=== PATIENT | male | born 2000 | race Two or more races ===

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

== ENCOUNTER → 2019-04-10 | Outpatient (CLI) | payer OTHER ==
[~2019-04-10] MED LIST changes: +Remicade100 MG IV
[2019-04-14 03:09] LABS: CHLAMYDIA TRACHOMATIS, NAA Positive (Negative); NEISSERIA GONORRHOEAE, NAA Negative (Negative)
== END | disposition home or self-care (01) ==
LOC: LAB SHORT 16:17 → LAB 16:17
PROVIDERS: Nurse Practitioner Family
DX: Z11.3 Encounter for screening for infections with a predominantly sexual mode of transmission (principal)
CPT/HCPCS: 87491; 87591

== ENCOUNTER 2019-04-17 00:12 | Day surgery (SDC) | payer OTHER | END 2019-04-17 10:52 | disposition home or self-care (01) | LOC: ATC 00:12 | DX: K50.814 Crohn's disease of both small and large intestine with abscess (principal); F17.200 Nicotine dependence, unspecified, uncomplicated; Z79.899 Other long term (current) drug therapy; Z88.0 Allergy status to penicillin | CPT/HCPCS: 96413; 96415; J1745; J7050 ==

== ENCOUNTER 2019-06-23 02:20 | Day surgery (SDC) | payer OTHER | END 2019-06-23 16:48 | disposition home or self-care (01) | LOC: ATC 02:20 | DX: K50.814 Crohn's disease of both small and large intestine with abscess (principal); F17.200 Nicotine dependence, unspecified, uncomplicated; Z79.899 Other long term (current) drug therapy; Z88.0 Allergy status to penicillin | CPT/HCPCS: 96413; 96415; J1745; J2930; J7050 ==

== ENCOUNTER 2019-10-25 00:12 | Day surgery (SDC) | payer OTHER ==
--- NOTE | 2019-10-25 08:34 | NUR ---
IV INSERTION: BRAD PALENCIA RN ATTEMPTED 1 IV ATTEMPT
== END 2019-10-25 11:00 | disposition home or self-care (01) ==
LOC: ATC 00:12
DX: K50.814 Crohn's disease of both small and large intestine with abscess (principal); F17.200 Nicotine dependence, unspecified, uncomplicated; Z79.2 Long term (current) use of antibiotics; Z79.899 Other long term (current) drug therapy; Z88.0 Allergy status to penicillin; Z88.8 Allergy status to other drugs, medicaments and biological substances; Z91.010 Allergy to peanuts; Z91.018 Allergy to other foods; Z91.011 Allergy to milk products
CPT/HCPCS: 96413; 96415; J1745; J7050

== ENCOUNTER 2019-12-28 00:08 | Day surgery (SDC) | payer OTHER | END 2019-12-28 10:54 | disposition home or self-care (01) | LOC: ATC 00:08 | DX: K65.1 Peritoneal abscess (principal); F17.200 Nicotine dependence, unspecified, uncomplicated; K50.80 Crohn's disease of both small and large intestine without complications; Z88.0 Allergy status to penicillin | CPT/HCPCS: 96413; J1745; J7050 ==

== ENCOUNTER 2020-02-16 00:05 | Day surgery (SDC) | payer OTHER | END 2020-02-16 22:42 | disposition home or self-care (01) | LOC: ATC 00:05 | DX: K65.1 Peritoneal abscess (principal); F17.200 Nicotine dependence, unspecified, uncomplicated; Z88.0 Allergy status to penicillin; K50.80 Crohn's disease of both small and large intestine without complications ==

== ENCOUNTER 2020-10-16 01:05 | Day surgery (SDC) | payer OTHER | END 2020-10-16 10:43 | disposition home or self-care (01) | LOC: ATC 01:05 | DX: K50.80 Crohn's disease of both small and large intestine without complications (principal); F17.200 Nicotine dependence, unspecified, uncomplicated; Z79.899 Other long term (current) drug therapy; Z88.0 Allergy status to penicillin; Z91.012 Allergy to eggs; Z91.010 Allergy to peanuts; Z91.011 Allergy to milk products; Z91.018 Allergy to other foods | CPT/HCPCS: 96413; 96415; J1745; J7050 ==

== ENCOUNTER 2021-03-01 21:48 | Emergency (ER) | payer OTHER ==
[~2021-03-01] VITALS: Ht 177.8 cm; Wt 83.9 kg
[2021-03-01] MEDS ORDERED: MONT10T (23:13)
== END 2021-03-02 01:22 | disposition home or self-care (01) ==
LOC: ER 21:48
DX: S01.81XA Laceration without foreign body of other part of head, initial encounter (principal); S80.212A Abrasion, left knee, initial encounter; S80.211A Abrasion, right knee, initial encounter; Z88.0 Allergy status to penicillin; Z88.8 Allergy status to other drugs, medicaments and biological substances; Z91.018 Allergy to other foods; Z91.010 Allergy to peanuts; Z23 Encounter for immunization; Y04.0XXA Assault by unarmed brawl or fight, initial encounter
CPT/HCPCS: 12015; 90471; 90714; 99283-25

== ENCOUNTER 2023-11-22 01:57 | Day surgery (SDC) | payer OTHER ==
[~2023-11-22] VITALS: Wt 87.7 kg
[~2023-11-22 01:57] MED LIST changes: +MONT10T
[2023-11-22 07:33] VITALS: BP 134/93
[2023-11-22] MEDS ORDERED: INFLIXIMAB DYYB IV SCH (07:45)
[2023-11-22] MEDS ORDERED: NS IV SCH (07:45)
== END 2023-11-22 10:28 | disposition home or self-care (01) ==
LOC: ATC 01:57
DX: K50.80 Crohn's disease of both small and large intestine without complications (principal); Z88.0 Allergy status to penicillin; Z91.010 Allergy to peanuts
CPT/HCPCS: 96413; 96415; J7050; Q5103

== ENCOUNTER 2024-05-09 03:35 | Day surgery (SDC) | payer OTHER ==
[~2024-05-09] VITALS: Wt 91.4 kg
[2024-05-09 07:58] VITALS: BP 134/106
[2024-05-09] MEDS ORDERED: Infliximab-DYYB 700 MG in NS 250 ML IV SCH (08:15)
== END 2024-05-09 10:48 | disposition home or self-care (01) ==
LOC: ATC 03:35
DX: K50.80 Crohn's disease of both small and large intestine without complications (principal); Z88.0 Allergy status to penicillin
CPT/HCPCS: 96413; 96415; J7050; Q5103

== ENCOUNTER 2024-07-10 04:10 | Day surgery (SDC) | payer OTHER ==
[~2024-07-10] VITALS: Wt 93.1 kg
[2024-07-10 07:32] VITALS: BP 171/99
[2024-07-10] MEDS ORDERED: Infliximab-DYYB 700 MG in NS 250 ML IV SCH (07:45)
== END 2024-07-10 10:15 | disposition home or self-care (01) ==
LOC: ATC 04:10
DX: K50.80 Crohn's disease of both small and large intestine without complications (principal); Z88.0 Allergy status to penicillin; Z91.012 Allergy to eggs; Z91.010 Allergy to peanuts
CPT/HCPCS: 96413; 96415; J7050; Q5103

== ENCOUNTER 2024-09-11 02:11 | Day surgery (SDC) | payer OTHER ==
[~2024-09-11] VITALS: Wt 96.1 kg
[2024-09-11 13:32] VITALS: BP 155/91
[2024-09-11] MEDS ORDERED: Infliximab-DYYB 700 MG in NS 250 ML IV SCH (13:40)
== END 2024-09-11 16:20 | disposition home or self-care (01) ==
LOC: ATC 02:11
DX: K50.814 Crohn's disease of both small and large intestine with abscess (principal); Z88.0 Allergy status to penicillin; Z91.010 Allergy to peanuts; Z91.012 Allergy to eggs
CPT/HCPCS: 96413; 96415; J7050; Q5103

== ENCOUNTER 2024-11-09 05:17 | Day surgery (SDC) | payer BC ==
[~2024-11-09] VITALS: Wt 95.5 kg
[2024-11-09 07:37] VITALS: BP 147/98
[2024-11-09] MEDS ORDERED: Infliximab-DYYB 700 MG in NS 250 ML IV SCH (07:50)
== END 2024-11-09 10:36 | disposition home or self-care (01) ==
LOC: ATC 05:17
DX: K50.814 Crohn's disease of both small and large intestine with abscess (principal); Z88.0 Allergy status to penicillin; Z91.010 Allergy to peanuts; Z91.012 Allergy to eggs
CPT/HCPCS: 96413; 96415; J7050; Q5103

== ENCOUNTER 2025-01-16 03:47 | Day surgery (SDC) | payer BC ==
[~2025-01-16] VITALS: Wt 95.3 kg
[2025-01-16 13:49] VITALS: BP 122/74
[2025-01-16] MEDS ORDERED: Infliximab-DYYB 700 MG in NS 250 ML IV SCH (13:55)
== END 2025-01-16 16:47 | disposition home or self-care (01) ==
LOC: ATC 03:47
DX: K50.814 Crohn's disease of both small and large intestine with abscess (principal); Z91.012 Allergy to eggs; Z91.010 Allergy to peanuts; Z88.0 Allergy status to penicillin
CPT/HCPCS: 96413; 96415; J7050; Q5103

== ENCOUNTER 2025-05-07 18:20 | Observation (INO) | payer BC, OTHER ==
[~2025-05-07] VITALS: Ht 177.8 cm; Wt 86.2 kg
[2025-05-07] MEDS ORDERED: Morphine Sulfate 4 MG/1 ML Injection IV ONE (18:30)
[2025-05-07 18:46] LABS: BASOPHILS ABSOLUTE AUTO 0.05 K/mm3 (0.00-0.23); BASOPHILS PERCENT AUTO 1 % (0-2); EOSINOPHILS ABSOLUTE AUTO 1.07 K/mm3 (0.00-0.68); EOSINOPHILS PERCENT AUTO 11 % (0-6); Hematocrit 40.5 % (37.0-53.0); Hemoglobin 14.1 g/dL (13.5-17.5); IMMATURE GRAN ABSOLUTE AUTO 0.02 K/mm3 (0.00-0.10); IMMATURE GRAN PERCENT AUTO 0 % (0-1); LYMPHOCYTES ABSOLUTE AUTO 3.08 K/mm3 (0.84-5.20); LYMPHOCYTES PERCENT AUTO 32 % (21-46); MONOCYTES ABSOLUTE AUTO 0.86 K/mm3 (0.16-1.47); MONOCYTES PERCENT AUTO 9 % (4-13); Mean Corpuscular HGB Conc 34.8 g/dL (31.5-36.5); Mean Corpuscular Volume 91 fL (80-100); NEUTROPHILS ABSOLUTE AUTO 4.64 K/mm3 (1.96-9.15); NEUTROPHILS PERCENT AUTO 48 % (41-73); NRBC ABSOLUTE 0.00 K/mm3 (0.00-0.02); NRBC Auto 0.0 /100 WBC (0.0-0.2); Platelet Count 324 K/mm3 (150-400); RDW Coefficient Variation 12.7 % (11.7-14.2); RDW Standard Deviation 42.2 fL (35.1-46.3)
[2025-05-07 19:02] LABS: Prothrombin Time Results 10.3 Sec (9.7-11.5)
[2025-05-07 19:19] LABS: Alanine Aminotransfer (ALT/SGP 57.0 U/L (12-78); Albumin, Blood 4.1 g/dL (3.4-5.0); Albumin/Globulin Ratio 1.1 (0.8-1.8); Anion Gap 12.0 mmol/L (3-11); Aspartate Aminotrans (AST/SGOT 43.0 U/L (12-37); Bilirubin, Total 0.5 mg/dL (0.1-1.0); Blood Urea Nitrogen 13.0 mg/dL (8-24); CO2, Blood 24.0 mmol/L (21-32); Calcium, Blood 8.9 mg/dL (8.5-10.1); Chloride, Blood 105.0 mmol/L (98-108); Creatinine, Blood 1.07 mg/dL (0.60-1.20); Globulin, Blood 3.7 g/dL (2.2-4.0); Glucose, Blood 100.0 mg/dL (70-99); Potassium, Blood 3.3 mmol/L (3.5-5.5); Sodium, Blood 138.0 mmol/L (136-145); Total Protein, Blood 7.8 g/dL (6.4-8.2)
[2025-05-07] MEDS ORDERED: FentaNYL Citrate 50 MCG/ML 2 ML Injection IV ONE (19:25)
[2025-05-07] MEDS ORDERED: CeFAZolin Sodium 2,000 MG in NS 100 ML IV ONE (19:25)
[2025-05-07] MEDS ORDERED: Rocuronium Bromide 10 MG/ML 5ML Injection IV ONE (21:25)
[2025-05-07] MEDS ORDERED: SuccINYLCHOLINE Chloride 100 MG/5 ML 5MLSYR ONE (21:25)
[2025-05-07] MEDS ORDERED: Midazolam HCl 1MG / ML 2ML Vial ONE (21:25)
[2025-05-07] MEDS ORDERED: Ondansetron HCl 2 MG / ML 2ML Vial ONE (21:25)
[2025-05-07] MEDS ORDERED: FentaNYL Citrate 50 MCG/ML 2 ML Injection ONE (21:25)
[2025-05-07] MEDS ORDERED: Dexamethasone Sod Phos 10 MG/ML 1ML VIAL ONE (21:25)
[2025-05-07] MEDS ORDERED: HYDROmorphone HCl/Pf 1MG SYR IV ONE (21:30)
[2025-05-07] MEDS ORDERED: CeFAZolin Sodium 2,000 MG VIAL ONE (22:29)
[2025-05-07] MEDS ORDERED: Cefazolin 2000MG/Dextrose,ISO 50 ML IV PRN (22:30)
[2025-05-07] MEDS ORDERED: CeFAZolin Sodium 2,000 MG in NS 100 ML IV PRN (22:50)
[2025-05-07] MEDS ORDERED: HYDROmorphone HCl/Pf 1MG SYR IV PRN ×3 (22:50→23:55)
[2025-05-07] MEDS ORDERED: Magnesium Hydroxide Conc 10 ML UDC PO PRN (22:55)
[2025-05-07] MEDS ORDERED: HYDROmorphone HCl/Pf 1MG SYR ONE (23:37)
[2025-05-07] MEDS ORDERED: FentaNYL Citrate 50 MCG/ML 2 ML Injection IV PRN ×2 (23:50)
[2025-05-07] MEDS ORDERED: ePHEDrine Sulfate 50 MG/ML 1ML Injection IV PRN (23:50)
[2025-05-07] MEDS ORDERED: Metoclopramide HCl 5MG / ML 2ML Vial IV PRN (23:50)
[2025-05-08] VITALS (15 sets, daily range): BP systolic 110–142; BP diastolic 60–95
[2025-05-08] MEDS ORDERED: Ketorolac Tromethamine 30mg Vial ONE (00:35)
[2025-05-08] MEDS ORDERED: Sugammadex Sodium 200 MG/2ML SDV (100 MG/ML) ONE (00:40)
[2025-05-08] MEDS ORDERED: OxyCODONE 5 mg/Acetamin 325 mg TABLET PO PRN ×2 (01:30→17:40)
--- NOTE | 2025-05-08 02:15 | NUR ---
ARRIVAL FROM PACU PT ARRIVED TO ROOM 221 FROM PACU AT 0150. BEDSIDE REPORT RECEIVED FROM BOBBIN CLEANER JUAN. PT SLEEPING BUT AWAKES TO VOICE AND ANSWERS QUESTIONS APPROPRIATELY. PT ARRIVES ON 2L O2 VIA NC FOR SATTING AT 89% ON RA POST OP, SATTING HIGH 90'S ON 2L. LLE WITH GAUZE AND FADI WRAP FROM BELOW KNEE DOWN TO TOES. TOES PINK, WARM, AND PT ABLE TO WIGGLE. REPORTS GOOD SENSATION TO TOES AND DENIES N/T. MID CALF AREA OF DRESSING WITH SOME DRAINAGE STRIKING THROUGH DRESSING, AREA REENFORCED WITH ABD PADS AND ADDITIONAL FADI WRAP. PT'S GIRLFRIEND IN TO SEE PT. VITALS STABLE, WCTM.
[2025-05-08 04:24] LABS: BASOPHILS ABSOLUTE AUTO 0.03 K/mm3 (0.00-0.23); BASOPHILS PERCENT AUTO 0 % (0-2); EOSINOPHILS ABSOLUTE AUTO 0.17 K/mm3 (0.00-0.68); EOSINOPHILS PERCENT AUTO 1 % (0-6); Hematocrit 37.7 % (37.0-53.0); Hemoglobin 12.4 g/dL (13.5-17.5); IMMATURE GRAN ABSOLUTE AUTO 0.05 K/mm3 (0.00-0.10); IMMATURE GRAN PERCENT AUTO 0 % (0-1); LYMPHOCYTES ABSOLUTE AUTO 1.27 K/mm3 (0.84-5.20); LYMPHOCYTES PERCENT AUTO 10 % (21-46); MONOCYTES ABSOLUTE AUTO 1.40 K/mm3 (0.16-1.47); MONOCYTES PERCENT AUTO 11 % (4-13); Mean Corpuscular HGB Conc 32.9 g/dL (31.5-36.5); Mean Corpuscular Volume 95 fL (80-100); NEUTROPHILS ABSOLUTE AUTO 9.58 K/mm3 (1.96-9.15); NEUTROPHILS PERCENT AUTO 77 % (41-73); NRBC ABSOLUTE 0.00 K/mm3 (0.00-0.02); NRBC Auto 0.0 /100 WBC (0.0-0.2); Platelet Count 250 K/mm3 (150-400); RDW Coefficient Variation 13.0 % (11.7-14.2); RDW Standard Deviation 44.5 fL (35.1-46.3)
[2025-05-08 04:47] LABS: Alanine Aminotransfer (ALT/SGP 50.0 U/L (12-78); Albumin, Blood 3.4 g/dL (3.4-5.0); Albumin/Globulin Ratio 1.0 (0.8-1.8); Anion Gap 6.0 mmol/L (3-11); Aspartate Aminotrans (AST/SGOT 41.0 U/L (12-37); Bilirubin, Total 0.8 mg/dL (0.1-1.0); Blood Urea Nitrogen 13.0 mg/dL (8-24); CO2, Blood 29.0 mmol/L (21-32); Calcium, Blood 8.2 mg/dL (8.5-10.1); Chloride, Blood 108.0 mmol/L (98-108); Creatinine, Blood 1.12 mg/dL (0.60-1.20); Globulin, Blood 3.3 g/dL (2.2-4.0); Glucose, Blood 98.0 mg/dL (70-99); Potassium, Blood 4.1 mmol/L (3.5-5.5); Sodium, Blood 139.0 mmol/L (136-145); Total Protein, Blood 6.7 g/dL (6.4-8.2)
[2025-05-08] MEDS ORDERED: CeFAZolin Sodium 1,000 MG in NS 50 ML IV SCH (06:00)
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
[2025-05-08] MEDS ORDERED: CeFAZolin Sodium 2,000 MG in NS 100 ML IV SCH (08:00)
[2025-05-08] MEDS ORDERED: Enoxaparin 40 MG/0.4 ML SYR SC SCH (09:00)
--- NOTE | 2025-05-08 09:17 | NUR ---
r leg dressing with sanguinous drainage . md notified for orders/advice.
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
--- NOTE | 2025-05-08 17:08 | NUR ---
SHIFT SUMMARY PT RESTING. SO AT BEDSIDE. IV PRESENTLY TO SL. R LEG DRESSING CHANGED ONCE TODAY. PT DID BRIEFLY WORK WITH PT/OT TODAY. RECENTLY MEDICATED FOR PAIN. DRESSING TO R LEG WITH SHADOWING, BUT NOT SOAKING THROUGH. WILL CONTINUE TO MONITOR.
[2025-05-09 04:46] VITALS: BP 128/79
[2025-05-09 05:05] LABS: Hematocrit 33.3 % (37.0-53.0); Hemoglobin 11.1 g/dL (13.5-17.5); Mean Corpuscular HGB Conc 33.3 g/dL (31.5-36.5); Mean Corpuscular Volume 95 fL (80-100); NRBC ABSOLUTE 0.00 K/mm3 (0.00-0.02); NRBC Auto 0.0 /100 WBC (0.0-0.2); Platelet Count 249 K/mm3 (150-400); RDW Coefficient Variation 12.9 % (11.7-14.2); RDW Standard Deviation 44.8 fL (35.1-46.3)
--- NOTE | 2025-05-09 05:31 | NUR ---
NOC SUMMARY- PT PAIN MANAGED WELL. PT DRESSING HAS SOME SHADOWING. PT HAS BEEN RESTING IN NO DISTRESS. PT TOLERATING PO AND VOIDING. CALL LIGHT IN REACH.
[2025-05-09 07:29] VITALS: BP 136/77
[2025-05-09] MEDS ORDERED: Percocet 5-3251 EACH PO (11:15)
--- NOTE | 2025-05-09 13:19 | NUR ---
DISCHARGE PATIENT IS AOX4, VSS. DR. MADDEN ROUNDS AND DRESSING IS CHANGED. EXTRA AQUACELS IN DC PACKET. WRITTEN PRESCRIPTION WITH PATIENT. ALL INSTRUCTIONS READ AND SIGNED. FOLLOW APPOINTMENT REFFERAL MADE. PATIENT LEAVES VIA PRIVATE CAR.
== END 2025-05-09 13:20 | disposition home or self-care (01) ==
LOC: ER 18:20 → SURS 18:21 → ER 21:02 → SURS 21:02
PROVIDERS: Orthopaedic Surgery; Student in an Organized Health Care Education/Training Program; ADMIT Surgery
PROC: 0QBH0ZZ Excision of Left Tibia, Open Approach (ICD-10-PCS; principal; 2025-05-07 15:30)
PROC: 0QSH06Z Reposition Left Tibia with Intramedullary Internal Fixation Device, Open Approach (ICD-10-PCS; principal; 2025-05-07 15:30)
DX: S82.222B Displaced transverse fracture of shaft of left tibia, initial encounter for open fracture type I or II (principal); S82.422B Displaced transverse fracture of shaft of left fibula, initial encounter for open fracture type I or II; G89.11 Acute pain due to trauma; J45.909 Unspecified asthma, uncomplicated; K50.90 Crohn's disease, unspecified, without complications; Z79.620 Long term (current) use of immunosuppressive biologic; Z88.0 Allergy status to penicillin; Z91.010 Allergy to peanuts; Z91.018 Allergy to other foods; V23.49XA Other motorcycle driver injured in collision with car, pick-up truck or van in traffic accident, initial encounter; Y92.488 Other paved roadways as the place of occurrence of the external cause
CPT/HCPCS: 36415; 70450; 72125; 73560-LT; 73590; 73610; 80053; 85025; 85027; 85610; 85730; 86850; 86900; 86901; 90471; 90715; 94760; 96361; 96374; 96375; 97110; 97112; 97161; 97165; 97530; 97535; 99285-25; A9270; C1713; J0330; J0690; J1100; J1171; J1650; J1885; J2250; J2270; J2405; J2704; J3010; J7120

== ENCOUNTER 2025-06-08 01:23 | Day surgery (SDC) | payer BC, OTHER ==
[~2025-06-08] VITALS: Wt 86.4 kg
[~2025-06-08 01:23] MED LIST changes: +Percocet 5-3251 EACH PO
[2025-06-08 14:59] VITALS: BP 156/99
[2025-06-08] MEDS ORDERED: Infliximab-DYYB 700 MG in NS 250 ML IV SCH (15:10)
== END 2025-06-08 17:45 | disposition home or self-care (01) ==
LOC: ATC 01:23
DX: K50.80 Crohn's disease of both small and large intestine without complications (principal); Z91.010 Allergy to peanuts; Z91.012 Allergy to eggs; Z88.0 Allergy status to penicillin
CPT/HCPCS: 96413; 96415; J7050; Q5103

== ENCOUNTER 2025-08-27 10:50 | Day surgery (SDC) | payer OTHER ==
[~2025-08-27] VITALS: Wt 83.8 kg
[2025-08-27 13:37] VITALS: BP 152/80
[2025-08-27] MEDS ORDERED: Infliximab-DYYB 600 MG in NS 250 ML IV SCH (14:10)
[2025-08-29 13:02] LABS: ANTIBODIES TO INFLIXIMAB QUANT <20 ng/mL; INFLIXIMAB QUANTITATION <0.5 ug/mL
== END 2025-08-27 16:25 | disposition home or self-care (01) ==
LOC: ATC 10:50
PROVIDERS: Nurse Practitioner Family
DX: K50.814 Crohn's disease of both small and large intestine with abscess (principal); L30.9 Dermatitis, unspecified; Z88.0 Allergy status to penicillin; Z91.010 Allergy to peanuts; Z91.0120 Allergy to eggs, unspecified; Z79.899 Other long term (current) drug therapy
CPT/HCPCS: 36591; 80230; 82397; 96413; 96415; J7050; Q5103